=== PATIENT | female | born 1960 | race Caucasian/White ===

== ENCOUNTER 2017-04-30 18:28 | Inpatient (IN) | payer OTHER ==
[~2017-04-30] VITALS: Ht 157.5 cm; Wt 74.6 kg
[2017-04-30 19:03] LABS: HEMOGLOBIN 12.3 gm/dl (12.3-15.3); RED BLOOD COUNT 4.97 M/UL (4.00-5.10); WHITE BLOOD COUNT 8.1 K/UL (4.5-11.0)
[2017-04-30 19:22] LABS: BUN/CREATININE RATIO 13 (0-10)
[2017-04-30] MEDS ORDERED: PLAVIX 75 MG TA75 MG PO (23:21)
[2017-04-30] MEDS ORDERED: METFORMIN HCL1000 MG PO (23:21)
[2017-04-30] MEDS ORDERED: CYMBALTA 30 MG30 MG PO (23:22)
[2017-04-30] MEDS ORDERED: LIPITOR80 MG PO (23:22)
[2017-04-30] MEDS ORDERED: SYNTHROID175 MCG PO (23:22)
[2017-04-30] MEDS ORDERED: ENALAPRIL MALE2.5 MG PO (23:23)
[2017-05-01 05:00] LABS: HEMOGLOBIN 11.3 gm/dl (12.3-15.3); RED BLOOD COUNT 4.68 M/UL (4.00-5.10); WHITE BLOOD COUNT 6.1 K/UL (4.5-11.0)
[2017-05-01 05:18] LABS: BUN/CREATININE RATIO 15 (0-10)
== END 2017-05-07 16:45 | DRG 65 ==
LOC: ER1 18:28 → ZEROF 20:20 → M/S 20:20
PROVIDERS: Family Medicine; ADMIT Internal Medicine
DX: I63.9 Cerebral infarction, unspecified (principal); G81.94 Hemiplegia, unspecified affecting left nondominant side; R47.81 Slurred speech; R29.701 NIHSS score 1; Z75.1 Person awaiting admission to adequate facility elsewhere; E11.65 Type 2 diabetes mellitus with hyperglycemia; I25.10 Atherosclerotic heart disease of native coronary artery without angina pectoris; I10 Essential (primary) hypertension; E03.9 Hypothyroidism, unspecified; E78.5 Hyperlipidemia, unspecified; F32.9 Major depressive disorder, single episode, unspecified; F41.9 Anxiety disorder, unspecified; E66.9 Obesity, unspecified; F39 Unspecified mood [affective] disorder; Z95.1 Presence of aortocoronary bypass graft; Z95.5 Presence of coronary angioplasty implant and graft; Z68.30 Body mass index [BMI] 30.0-30.9, adult; Z79.84 Long term (current) use of oral hypoglycemic drugs; Z79.02 Long term (current) use of antithrombotics/antiplatelets; Z79.899 Other long term (current) drug therapy
CPT/HCPCS: ECHO; 36415; 70544; 70551; 71010; 80053; 80061; 80307; 81001; 82140; 82550; 82553; 82962; 83036; 83874; 84484; 85025; 85730; 92526; 92610; 93005; 93306; 93880; 97110; 97112; 97116; 97535; 99285; G0480; J2060